=== PATIENT | female | born 1990 | race Hispanic/Latino ===

== ENCOUNTER 2018-05-20 02:44 | Emergency (ER) | payer OTHER ==
[~2018-05-20] VITALS: Ht 149.9 cm; Wt 54.9 kg
[2018-05-20] MEDS ORDERED: HYDROCODONE/APAP 10MG-325MG TAB PO ONE (03:00)
[2018-05-20] MEDS ORDERED: HYDROMORPHONE 1MG/1ML INJ IM STA (03:48)
[2018-05-20] MEDS ORDERED: HYDROMORPHONE 2MG/ML 2 MG/ML ML ONE (04:07)
--- NOTE | 2018-05-20 04:07 | Diagnostic Imaging Report ---
HUMERUS LEFT 2+VIEWS HISTORY: Fall. COMPARISON: None available. FINDINGS: Bones: Mildly comminuted fracture of the distal humeral metadiaphysis with approximately half shaft width displacement of the fracture fragments. No intra-articular extension. Joints: The joint spaces are well-maintained. Soft tissues: Soft tissue swelling adjacent to the fracture. IMPRESSION: Acute fracture of the distal humerus. Signed by: DR. Mendel Deleon MD on 05/20/2018 4:04 AM
[2018-05-20] MEDS ORDERED: FENTANYL 50 MCG/HR PATCH TOP ONE (04:45)
== END 2018-05-20 05:27 | disposition home or self-care (01) ==
LOC: ER 02:44
DX: M25.522 Pain in left elbow (principal); S42.492A Other displaced fracture of lower end of left humerus, initial encounter for closed fracture; Y93.83 Activity, rough housing and horseplay; Y92.003 Bedroom of unspecified non-institutional (private) residence as the place of occurrence of the external cause
CPT/HCPCS: 29125; 73060; 99283; J1170